=== PATIENT | female | born 1965 | race Caucasian/White ===

== ENCOUNTER 2021-11-10 23:17 | Inpatient (IN) | payer OTHER ==
[~2021-11-10] VITALS: Ht 167.6 cm; Wt 83.8 kg
[2021-11-10 23:50] LABS: BASOPHILS ABSOLUTE AUTO 0.04 K/mm3 (0.00-0.23); BASOPHILS PERCENT AUTO 1 % (0-2); EOSINOPHILS ABSOLUTE AUTO 0.03 K/mm3 (0.00-0.68); EOSINOPHILS PERCENT AUTO 1 % (0-6); Hematocrit 40.9 % (33.0-51.0); Hemoglobin 13.3 g/dL (11.5-16.0); IMMATURE GRAN ABSOLUTE AUTO 0.01 K/mm3 (0.00-0.10); IMMATURE GRAN PERCENT AUTO 0 % (0-1); LYMPHOCYTES ABSOLUTE AUTO 1.67 K/mm3 (0.84-5.20); LYMPHOCYTES PERCENT AUTO 27 % (21-46); MONOCYTES ABSOLUTE AUTO 0.36 K/mm3 (0.16-1.47); MONOCYTES PERCENT AUTO 6 % (4-13); Mean Corpuscular HGB 26.9 pg (26.0-34.0); Mean Corpuscular HGB Conc 32.5 g/dL (31.5-36.5); Mean Corpuscular Volume 83 fL (80-100); NEUTROPHILS PERCENT AUTO 66 % (41-73); Platelet Count 302 K/mm3 (150-400); Red Blood Cell Count 4.94 M/mm3 (3.80-5.20); White Blood Cell Count 6.21 K/mm3 (4.00-11.30)
[2021-11-10 23:54] LABS: Source, Urine Clean Catch
[2021-11-11 00:01] LABS: Bilirubin, Urine Neg (Neg); Blood, Urine Neg (Neg); Glucose Qualitative, Urine Neg (Neg); Ketones, Urine Neg (Neg); Leukocyte Esterase, Urine 1+ (Neg); Nitrite, Urine Neg (Neg); Protein, Urine Neg (Neg); Urobilinogen, Urine NORM (Normal)
[2021-11-11 00:08] LABS: Alanine Aminotransfer (ALT/SGP 31 U/L (12-78); Albumin, Blood 3.6 g/dL (3.4-5.0); Albumin/Globulin Ratio 1.1 (0.8-1.8); Alk Phos 80 U/L (50-136); Anion Gap 5 mmol/L (6-16); Aspartate Aminotrans (AST/SGOT 12 U/L (12-37); Bilirubin, Total 0.4 mg/dL (0.1-1.0); Blood Urea Nitrogen 11 mg/dL (8-24); Bun/Creatinine Ratio 16.1 (12.0-20.0); CO2, Blood 27 mmol/L (21-32); Calcium, Blood 9.2 mg/dL (8.5-10.1); Chloride, Blood 110 mmol/L (98-108); Creatinine, Blood 0.69 mg/dL (0.40-1.00); Globulin, Blood 3.3 g/dL (2.2-4.0); Glomerular Filtration Rate >60 (60-); Glucose, Blood 157 mg/dL (70-99); Potassium, Blood 3.5 mmol/L (3.5-5.5); Sodium, Blood 142 mmol/L (136-145); Total Protein, Blood 6.9 g/dL (6.4-8.2)
[2021-11-11 00:34] LABS: Appearance, Urine Clear (Clear); Color, Urine Yellow (P-Yellow)
[2021-11-11 00:45] LABS: Bacteria Few /hpf; Red Blood Cells, Urine 0-2 /hpf (0-2); Squamous Epithelial Cells Rare /hpf (Few)
[2021-11-11] MEDS ORDERED: OMEPRAZOLE DR 20 MG (01:16)
[2021-11-11] MEDS ORDERED: PROG100 PO (01:18)
--- NOTE | 2021-11-11 05:40 | NUR ---
SHIFT SUMMARY PT ARRIVED TO UNIT FROM ED. HR BRADYCARDIC, SEE EHR. BP STABLE. OXYGEN SATURATION MAINTAINED ABOVE 95% ON RA. PT ALERT AND ORIENTED X 4. PT SBA D/T WEAKNESS. CARDIOLOGY CONUSLT PLACED. PT ABLE TO TURN SELF IN BED NEEDED. CALL LIGHT WITHIN REACH. NO CP OR PRESSURE REPORTED. WILL CONT TO MONITOR UNTIL REPORT GIVEN TO DAYSHIFT RN.
--- NOTE | 2021-11-11 09:11 | NUR ---
ASSUMPTION OF CARE: ASSUMED CARE FOR PATIENT AT 0700 ON 11/11/21. PATIENT SLEEPING ON ASSUMPTION, PATIENT ALERT AND ORIENTED. BRADYCARDIA NO CHEST PAIN, ADMITTED WITH SYNCOPAL EPISODE ON BEDREST. PATIENT RECIEVED AN ECHO, AND CONSULTED URGENTLY BY DR. GAMEZ SUPERINTENDENT [employer] [place], RECOMMENDATIONS FROM PROVIDER WERE TO PLACE TEMP PACEMAKER, PATIENT AGREED. COMMISSIONS SPECIALIST DID EKG, [facility], AND REPORT GIVEN TO MANAGER [facility] FOR [facility]. PATIENT AWARE OF THE PLAN AND UNDERSTANDS WITH NO QUESTIONS COMMENTS OR CONCERNS AT THIS TIME.
[2021-11-11 09:19] LABS: Digoxin (Lanoxin) 0.11 ug/mL (0.80-2.00)
--- NOTE | 2021-11-11 09:49 | NUR ---
[facility] bed. She is alert and oriented and is able to communicate her needs. She is able to [position self in bed for comfort. She has temporary pacer in RIJ, valve is closed and syringe attached. She states can use bedpan without assist. Water and call light at bedside. HR 45-55 and occassionally paced.
--- NOTE | 2021-11-11 11:37 | NUR ---
Pt. is alert and in bed, and welcomes my visit. Spouse is present. Pt. is unsettled about news that her diet may have been a trigger for her hospitalization. Listen empathetically and seek to normalize the pt. experience. Continue to establish rapport. Pt. displays evidenc of bothe engagement and encouragement. Pt. and spouse are people of [place]. Prayed with Pt. and spouse. Both Pt. and spouse verbalize their gratitude for the spiritual care visit.
--- NOTE | 2021-11-11 11:50 | NUR ---
Patient manages bed miller by herself. HR 45-55 and occassionally paced. No changes to temp pacer in RIJ , dressing intact and site WNL's. She continues to self positions for comfort. Had dietary come by and addressed her special dietary needs. She remains alert and oriented and able to communicate her needs.
--- NOTE | 2021-11-11 13:30 | NUR ---
Patient has been resting and has managed bedpan by herself. Dr Solano by and saw her and her . She remains alert and oriented . HR 45-60 with occassional pace when drops and patient states she feels it. in and out getting supplies.
[2021-11-11 15:25] LABS: Source, Urine Foley catheter
[2021-11-11 15:37] LABS: Bilirubin, Urine Neg (Neg); Blood, Urine 3+ (Neg); Glucose Qualitative, Urine Neg (Neg); Ketones, Urine Neg (Neg); Leukocyte Esterase, Urine 1+ (Neg); Nitrite, Urine Neg (Neg); Protein, Urine 4+ (Neg); Urobilinogen, Urine NORM (Normal); pH, Urine 6.5 (5.0-8.0)
[2021-11-11 15:38] LABS: Appearance, Urine Hazy (Clear); Color, Urine Pale Yellow (P-Yellow)
[2021-11-11 15:39] LABS: Bacteria Few /hpf; Mucus Light (0-Heavy); Squamous Epithelial Cells Few /hpf (Few)
[2021-11-11 15:44] LABS: U Amphetamine Screen Not Detected; U Barbituate Screen Not Detected; U Benzodiazapine Screen Not Detected; U Buprenorphine Screen Not Detected; U Cannabinoids Screen Not Detected; U Cocaine Screen Not Detected; U Methadone Screen Not Detected; U Methamphetamine Screen Not Detected; U Opiates Screen Not Detected; U Oxycodone Screen Not Detected; U Phencyclidine Screen Not Detected; U Propoxyphene Screen Not Detected
--- NOTE | 2021-11-11 16:02 | NUR ---
Patient had de guzman placed and she is not allowed out of bed r/t temp pacer. HR remains 45-[address] Solano wrote orders for covid test and sent UA and tox screen for de guzman.
[2021-11-11 16:48] LABS: Influenza A, PCR NEGATIVE (NEGATIVE); Influenza B, PCR NEGATIVE (NEGATIVE); Resp Syncytial Virus, PCR NEGATIVE (NEGATIVE); SARS-Cov-2 (COVID-19) PCR, MMC NEGATIVE (NEGATIVE)
--- NOTE | 2021-11-11 17:30 | NUR ---
Patient HR has been 44-55 and has been paced more frequently. She remains aleret and oriented She has been dring water with lemon in it. She is getting frustrated laying in bed. at bedside.Melendrez out put 900 ml.
--- NOTE | 2021-11-11 19:15 | NUR ---
ASSUMED PT CARE. BEDSIDE PT REPORT RECIEVED FROM OFF GOING RN. VSS, TEMP PACEMAKER SETTINGS VERIFIED. PT AAOX4 AND DENIES COMPLAINT.
[2021-11-12 04:21] LABS: BASOPHILS ABSOLUTE AUTO 0.06 K/mm3 (0.00-0.23); BASOPHILS PERCENT AUTO 1 % (0-2); EOSINOPHILS ABSOLUTE AUTO 0.15 K/mm3 (0.00-0.68); EOSINOPHILS PERCENT AUTO 3 % (0-6); Hematocrit 39.2 % (33.0-51.0); Hemoglobin 12.9 g/dL (11.5-16.0); IMMATURE GRAN ABSOLUTE AUTO 0.01 K/mm3 (0.00-0.10); IMMATURE GRAN PERCENT AUTO 0 % (0-1); LYMPHOCYTES ABSOLUTE AUTO 2.35 K/mm3 (0.84-5.20); LYMPHOCYTES PERCENT AUTO 43 % (21-46); MONOCYTES ABSOLUTE AUTO 0.36 K/mm3 (0.16-1.47); MONOCYTES PERCENT AUTO 7 % (4-13); Mean Corpuscular HGB 27.1 pg (26.0-34.0); Mean Corpuscular HGB Conc 32.9 g/dL (31.5-36.5); Mean Corpuscular Volume 82 fL (80-100); Mean Platelet Volume 9.8 fL (9.1-12.4); NEUTROPHILS PERCENT AUTO 47 % (41-73); Platelet Count 262 K/mm3 (150-400); RDW Coefficient Variation 13.9 % (11.7-14.2); RDW Standard Deviation 41.3 fL (35.1-46.3); Red Blood Cell Count 4.76 M/mm3 (3.80-5.20); White Blood Cell Count 5.53 K/mm3 (4.00-11.30)
[2021-11-12 04:59] LABS: Anion Gap 5 mmol/L (6-16); Blood Urea Nitrogen 7 mg/dL (8-24); Bun/Creatinine Ratio 9.6 (12.0-20.0); CO2, Blood 27 mmol/L (21-32); Calcium, Blood 8.4 mg/dL (8.5-10.1); Chloride, Blood 110 mmol/L (98-108); Creatinine, Blood 0.73 mg/dL (0.40-1.00); Digoxin (Lanoxin) 0.06 ug/mL (0.80-2.00); Glomerular Filtration Rate >60 (60-); Glucose, Blood 93 mg/dL (70-99); Magnesium, Blood 1.9 mg/dL (1.6-2.4); Potassium, Blood 3.6 mmol/L (3.5-5.5); Sodium, Blood 142 mmol/L (136-145)
--- NOTE | 2021-11-12 05:53 | NUR ---
SHIFT SUMMARY. PT STATUS REMIANS ESSENTIALLY UNCHANGED. PT COMPLAINS OF OCCASIONAL HEADACHE WHICH HAS BEEN RELIEVED BY PRN MEDICATION. PT CONTINUES TO DENY SOB, CHEST PAIN OR DIZZINESS. TEMP. PACER CONTUNUES TO PACE INTERMITTANTLY WITH GOOD CAPTURE, SETTINGS UNCHANGED.
--- NOTE | 2021-11-12 07:40 | NUR ---
Received reort from Noc RN. Patient awake in bed and able to communicate her needs. She had just finished having formed BM. She is on RA and sats 97%. She has temp pacer in RIJ, Dressing intact and site WNL's and HR in the 45-55 and occassionally paced. IV RFA flushed and SL. Remains on special diet needs.
--- NOTE | 2021-11-12 10:12 | NUR ---
Dr Solano has been by and awaiting new orders. Patient tolerated am meds and medicated for headache as per OCT. She tolerated breakfast without difficulty. Renewed water and ice. Melendrez remains patent and clear yellow urine output. HR 50-60.
--- NOTE | 2021-11-12 11:30 | NUR ---
Patient has been resting off and on. She denies any current headache since medicated. Temp pacer site WNL's. She received full bed bath and linen change. Patient remains pleasant and cooperative.
--- NOTE | 2021-11-12 13:48 | NUR ---
Patient called and started feeling really bad and weak when looked at EKG was having long period of pacing and now resolved. Pacer site WNL's and intact .
--- NOTE | 2021-11-12 15:30 | NUR ---
Medicated patient for pain and has not had as many episodes of pacing and feeling bad. at bedside. RIJ dressing intact and WNL's no changes since insertion. HR 45-58.
--- NOTE | 2021-11-12 17:59 | NUR ---
Patient has been doing well. When relaxed very little pacing. remains at bedside. [facility] pacer site WNL's and box on lap. Melendrez patent and had 2L out clear yellow urine and she took in 1800 ml's. Toradol and tylenol for pain (headache). She remains on bedrest, possible pacer on Wednesday if not improved.
--- NOTE | 2021-11-12 19:33 | NUR ---
PT REPORT RECIEVED. ASSUMED PT CARE. Pt AA&OX4, ON BEDREST WITH TEMP PACER IN PLACE WITH RATE SET @45 BPM, OUT PUT AT 2mA AND SENSITIVITY OF 2. PT DENIES COMPLAINT.
[2021-11-13 03:48] LABS: Anion Gap 6 mmol/L (6-16); Blood Urea Nitrogen 10 mg/dL (8-24); Bun/Creatinine Ratio 13.1 (12.0-20.0); CO2, Blood 25 mmol/L (21-32); Calcium, Blood 8.9 mg/dL (8.5-10.1); Chloride, Blood 110 mmol/L (98-108); Creatinine, Blood 0.76 mg/dL (0.40-1.00); Glomerular Filtration Rate >60 (60-); Glucose, Blood 98 mg/dL (70-99); Magnesium, Blood 2.2 mg/dL (1.6-2.4); Potassium, Blood 3.8 mmol/L (3.5-5.5); Sodium, Blood 141 mmol/L (136-145)
--- NOTE | 2021-11-13 05:50 | NUR ---
SHIFT SUMMERY: PT REMAINS AA&OX4 AND ON BEDREST. PT CONTUNES TO COMPLAIN OF INTERMITTANT HEADACHE WICH HAS BEEN CONTROLLED WITH PRN TYLENOL AND TORADOL. TMEP PACER REMAINS INTACT AND IN PLACE WITH GOOD CAPTURE AT CURRENT SETTINGS. RATE, 45, OUTPUT 2 mA. SENSITIVITY 2. BP AND SpO2 STABLE.
[2021-11-13 08:25] LABS: Digoxin (Lanoxin) 0.07 ug/mL (0.80-2.00)
--- NOTE | 2021-11-13 09:00 | NUR ---
Assumed Care. AOx4, cooperative. at bedside. Dr. Turner in this am to see the patient around 0715 and decreased the transducer rate to 40. Pt reports sensitivity to the pacer spikes which resolved with decreased rate. Per Dr. Turner she plans on monitoring for another day to see if she needs an internal pacemaker. Decision will be assessed tomorrow. Sinus Moises on the monitor as low as 45. Tolerating well. Denies dizziness or lightheadness. 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 Cath is patent and draining. No other complaints or concerns are noted. Bed in low position and call light is in reach.
--- NOTE | 2021-11-13 10:00 | NUR ---
Catheter leaking, small amount. Repositioned in the bladder. Still patent and draining but will montior for changes.
--- NOTE | 2021-11-13 11:41 | NUR ---
Family in to visit. Gave first dose of lisinopril, lunch given.
--- NOTE | 2021-11-13 13:00 | NUR ---
Pt sleeping, went home for a while. Will be back this evening.
--- NOTE | 2021-11-13 18:32 | NUR ---
Shift Summary: AOx3, cooperative. has been at bedside majority of the day. [place] off/on from when she fell back, CT on admit was normal. Tordol and Tylenol have been given. LS clear t/o, resp even and unlabored. Sats high 90's on RA. Sinus Moises on monitor. She has temporary pacemaker to the left neck IJ. Dr. Turner decreased rate to 40, 2 output, with 2 for setting on sensitivity. She has had very few pacer spikes today. Rate on average was up in 50-60. She denied any pain or discomfort with the temporary pacemaker. Dressing has remained intake. Good appetite. No BM today. Catheter has leaked off and on but she reports she has a cystocele. Leakage has been minimal. States it only occurs when she coughs. Skin is PWD. She has had antibotic per orders in prep for possible pacemaker surgery tomorrow, which depends on how she does tonight. Will report to oncoming nurse.
[2021-11-14 04:04] LABS: Anion Gap 6 mmol/L (6-16); Blood Urea Nitrogen 11 mg/dL (8-24); Bun/Creatinine Ratio 16.5 (12.0-20.0); CO2, Blood 25 mmol/L (21-32); Calcium, Blood 8.9 mg/dL (8.5-10.1); Chloride, Blood 110 mmol/L (98-108); Creatinine, Blood 0.67 mg/dL (0.40-1.00); Glomerular Filtration Rate >60 (60-); Glucose, Blood 96 mg/dL (70-99); Magnesium, Blood 1.9 mg/dL (1.6-2.4); Sodium, Blood 141 mmol/L (136-145)
[2021-11-14 05:41] LABS: Digoxin (Lanoxin) 0.07 ug/mL (0.80-2.00)
--- NOTE | 2021-11-14 06:48 | NUR ---
SHIFT SUMMERY: PT REMAINS AA7OX4 OVER NIGHT. SHE STATED A HEADACHE SURING THE NIGHT WHICH WAS RELEIVED BY IV TORADOL. TEMP PACER REMAINS INTACT AND IN PLACE WITH GOOD CAPTURE AT CURRENT SETTINGS: RATE-40, OP-2 mA, SENSITIVITY-2. PT'S HR WAS MOSTLY IN THE LOW TO MID 40'S WHILE ASLEEP, WITH ONLY VERY OCCASIONAL PACER SPIKES.. WHILE AWAKE, PT'S HR HAS TYPICLY INCREASED TO THE MID 50'S. PT DENIES CP, SOB AND DIZZINESS.
[2021-11-14 08:11] LABS: LYME IGG/IGM AB <0.91 ISR (0.00-0.90)
--- NOTE | 2021-11-14 10:46 | NUR ---
Pt. is awake and in bed. Pt. welcomes my visit. Spouse is present. Pt. is a little unsettled awaiting results that might confirm she needs a pacemaker. Listen empathetically. Another visitor came and visited Pt. Pt. displayed evidence of strong relational connections and support from both work and [employer] community. Pastorally prayed for pt. and her family. Pt. displayed evidence of peace and verbalized gratitude for the medical care she has received as well as the spiritual care she has received.
--- NOTE | 2021-11-14 12:21 | NUR ---
REASSEMENT PT RESTING IN BED REPORTING IMPROVEMENT TO HEADACHE AFTER TORODOL. PT MOSTLY REMAINS IN SINUS NICOL MID 40'S TO 50'S. TRANSVENOUS PACER IN PLACE WITH BACK UP RATE OF 40. PT HAS ONLY HAD A FEW EPISODES OF PACING WITH <5 BEATS THIS SHIFT. PT REMAINS NPO AT THIS TIME AWAITING CARDIOLOGY FOLLOWUP FOR POSSIBLE PERMANMENT PACER. VITALS HAVE REMAINED STABLE.
--- NOTE | 2021-11-14 15:41 | NUR ---
REASSESSMENT TEMPORY PACE MAKER HAS BEEN OFF SINCE [address] CHRISTENSEN. NO LONG PAUSES HAVE BEEN NOTED. PT REMAINS IN SINUS NICOL WITH RATES HIGH 40'S-MID 50'S. VITALS HAVE REMAINED STABLE. PT CONTINUES TO HAVE SLIGHT HEADACHE, CURRENTLY CONTROLLED WITH PRN MEDICATIONS. PT TO REMAIN NPO UNTIL DR CHRISTENSEN RE-EVAL'S PT FOR PACEMAKER NEED.
--- NOTE | 2021-11-14 18:07 | NUR ---
SHIFT SUMMARY PT IS ALERT AND ORIENTEDx4. TEMPORARY PACEMAKER TURNED OFF THIS AFTERNOON AND PT HAS HAD NO PAUSES. PT REMAINS IN A SINUS NICOL RHYTHM WITH RATES MID 40'S-50'S. VITALS HAVE REMAINED STABLE. PT'S HEADACHE HAS IMPROVED THROUGH OUT THE DAY. SEE EMAR FOR PRN MEDICATIONS. PT ABLE TO REPOSITION INDEPENDANTLY IN BED. DR CHRISTENSEN WANTS TO MONITOR PT OVER NIGHT FOR ANY SYMPTOMATIC BRADYCARDIA OR CARDIAC PAUSES. TEMPORARY PACER TO BE LEFT CONNECTED TO PT, BUT OFF. PT WAS ABLE TO TOLERATED DINNER AFTER NPO RESTRICTION LIFTED.
--- NOTE | 2021-11-14 22:18 | NUR ---
ASSUMED CARE RECEIVED REPORT FROM ZACH AT 1900. PT IS A/O X4, REPOSITIONS SELF INDEPENDENTLY AND COMMUNICATES NEEDS APPROPRIATELY. TRANSVENOUS PACER IN PLACE BUT HAS BEEN OFF SINCE 1315 TODAY. SINCE SHE HAS REMAINED IN SINUS NICOL WITH RATE IN 40-50'S AND 2 PAUSES NOTED AT 2019 AND 2213. ALL OTHER VITAL SIGNS ARE STABLE. SHE REPORTS A MILD HEADACHE, BUT DOES NOT WANT ANYTHING FOR IT YET. [place] REMAINS IN PLACE AND PATENT, DRAINING CLEAR YELLOW URINE TO GRAVITY. 20G TO RIGHT AC, SALINE LOCKED. ORDERS REVIEWED, WILL TREAT PRESCRIBED.
[2021-11-15 04:13] LABS: Anion Gap 7 mmol/L (6-16); Blood Urea Nitrogen 11 mg/dL (8-24); Bun/Creatinine Ratio 16.5 (12.0-20.0); CO2, Blood 24 mmol/L (21-32); Calcium, Blood 8.9 mg/dL (8.5-10.1); Chloride, Blood 108 mmol/L (98-108); Creatinine, Blood 0.67 mg/dL (0.40-1.00); Glomerular Filtration Rate >60 (60-); Glucose, Blood 87 mg/dL (70-99); Potassium, Blood 3.8 mmol/L (3.5-5.5); Sodium, Blood 139 mmol/L (136-145)
--- NOTE | 2021-11-15 05:49 | NUR ---
PT REMAINS A/0 X4 THROUGHOUT SHIFT. SHE REPORTS SHE FEELS RESTED AND WAS ABLE TO SLEEP SOME LAST NIGHT. VITAL SIGNS REMAINED STABLE THROUGHOUT THE NIGHT, HR REMAINED SINUS NICOL, RATE IN 40-50'S WITH ONLY TWO, <2 SECOND PAUSES AT THE BEGINNING OF THE SHIFT. OTHERWISE, NO ACUTE EVENTS. PACEMAKER REMAINS IN PLACE, BUT IS STILL OFF. ALL AM LABS WERE WITHIN NORMAL RANGE. MEDICATED X1 WITH PRN TORADOL FOR HEADACHE AND SHE REPORTS THIS AM SHE REMAINS HEADACHE FREE. WILL REPORT TO ONCOMING SHIFT WHEN AVAILABLE.
--- NOTE | 2021-11-15 07:43 | NUR ---
TOOK OVER CARE OF PT AT 0700. PT RESTING ON ROOM AIR, SINUS NICOL CARDIA ON TELEMETRY, OTHERWISE NEGATIVE ASSESSMENT AT THIS TIME.
--- NOTE | 2021-11-15 09:48 | NUR ---
DR. CHRISTENSEN PULLED TEMPORARY PACER WIRES, OCCLUSIVE DRESSING IN PLACE, NO SIGNS OF BLEEDING
[2021-11-15 10:17] LABS: Source, Urine Foley catheter
[2021-11-15 10:29] LABS: Appearance, Urine Clear (Clear); Bilirubin, Urine Neg (Neg); Blood, Urine 1+ (Neg); Glucose Qualitative, Urine Neg (Neg); Ketones, Urine 1+ (Neg); Leukocyte Esterase, Urine 3+ (Neg); Nitrite, Urine Pos (Neg); Protein, Urine Neg (Neg); Urobilinogen, Urine NORM (Normal)
--- NOTE | 2021-11-15 10:40 | NUR ---
URINE CULTURE SENT FROM [place], [place] REMOVED, PT THEN WALKED WITH NO DECREASE IN HR NOTED, PT THEN VOIDED ONCE BACK IN ROOM WITH NO PAIN ON URINATION.
[2021-11-15 10:45] LABS: Color, Urine Pale Yellow (P-Yellow)
[2021-11-15 10:46] LABS: Red Blood Cells, Urine 0-2 /hpf (0-2)
[2021-11-15 10:47] LABS: Bacteria Many /hpf; Squamous Epithelial Cells Not Seen /hpf (Few)
[2021-11-15] MEDS ORDERED: Prinivil10 MG PO (11:40)
== END 2021-11-15 12:32 | disposition home or self-care (01) | DRG 262 ==
LOC: ER 23:17 → PCU 23:18 → ICUE 11-11 08:45
PROVIDERS: Emergency Medicine; Internal Medicine; Internal Medicine Cardiovascular Disease; ADMIT Family Medicine
PROC: 5A1223Z Performance of Cardiac Pacing, Continuous (ICD-10-PCS; principal; 2021-11-11)
PROC: 02HK3JZ Insertion of Pacemaker Lead into Right Ventricle, Percutaneous Approach (ICD-10-PCS; 2021-11-11)
DX: I49.5 Sick sinus syndrome (principal); I45.5 Other specified heart block; Z20.822 Contact with and (suspected) exposure to COVID-19; Z28.21 Immunization not carried out because of patient refusal; E87.6 Hypokalemia; E83.42 Hypomagnesemia; I10 Essential (primary) hypertension; E11.9 Type 2 diabetes mellitus without complications; G47.00 Insomnia, unspecified; G47.33 Obstructive sleep apnea (adult) (pediatric); K21.9 Gastro-esophageal reflux disease without esophagitis; F43.10 Post-traumatic stress disorder, unspecified; T46.2X5A Adverse effect of other antidysrhythmic drugs, initial encounter; F41.9 Anxiety disorder, unspecified; E66.9 Obesity, unspecified; Z68.29 Body mass index [BMI] 29.0-29.9, adult; Z87.19 Personal history of other diseases of the digestive system; Z90.49 Acquired absence of other specified parts of digestive tract; Z90.89 Acquired absence of other organs; Z90.710 Acquired absence of both cervix and uterus; Z98.890 Other specified postprocedural states; Z99.89 Dependence on other enabling machines and devices; Z88.0 Allergy status to penicillin; Z88.6 Allergy status to analgesic agent; Z91.040 Latex allergy status; Z91.048 Other nonmedicinal substance allergy status; Z79.899 Other long term (current) drug therapy
CPT/HCPCS: 0241U; 33210; 36415; 51702; 70450; 76937; 80048; 80053; 80162; 81001; 82947; 83735; 84146; 84443; 84484; 85025; 86618; 87077; 87086; 87186; 93005; 93010; 93306; 99285-25; A9270; C1769; C1894; G0378; J1644; J1650; J1885; J3475; J7040; J7050

== ENCOUNTER 2021-12-11 06:11 | Day surgery (SDC) | payer OTHER ==
[~2021-12-11] VITALS: Ht 167.6 cm; Wt 83.0 kg
[~2021-12-11 06:11] MED LIST: OMEPRAZOLE DR 20 MG; PROG100 PO; Prinivil10 MG PO
--- NOTE | 2021-12-11 09:06 | NUR ---
PT ARRIVED BACK TO RECOVERY ROOM IN RECLINER. RACW PACEMAKER SITE SOFT NON-TENDER WITH NO HEMATOMA, NO BLEEDING AND INTACT DRESSING WITH ICE BAG OVER SITE AND RIGHT ARM SLING IN PLACE. PT DENIES CHEST PAIN. CALL LIGHT IN REACH.
--- NOTE | 2021-12-11 09:24 | NUR ---
PT'S IN ROOM. PT EATING BREAKFAST.
--- NOTE | 2021-12-11 12:23 | NUR ---
DR BALDWIN IN ROOM TO SEE PT. NO CHANGES TO RACW SITE.
--- NOTE | 2021-12-11 12:36 | NUR ---
20 G IV DISCONTINUED FROM RIGHT AC WITH INTACT CANNULA. PT ESCORTED OUT VIA WHEELCHAIR ESCORT.
== END 2021-12-11 12:40 | disposition home or self-care (01) ==
LOC: MHTC 06:11
DX: I49.5 Sick sinus syndrome (principal); I10 Essential (primary) hypertension; E11.9 Type 2 diabetes mellitus without complications; G47.33 Obstructive sleep apnea (adult) (pediatric); Z79.899 Other long term (current) drug therapy; Z88.0 Allergy status to penicillin; Z88.5 Allergy status to narcotic agent
CPT/HCPCS: 33208; 71046; 99152; 99153; C1785; C1894; C1898; J1200; J1580; J1644; J2250; J3010; J3370; J7030; J7040

== ENCOUNTER → 2023-01-08 | Outpatient (CLI) | payer OTHER ==
[~2023-01-08] MED LIST changes: +BUSPIRONE HCL10 M6 PO; +HIPREX1 G1 PO; +KLOR-CON 1010 ME9 PO; +PANTOPRAZOLE SO40 M2 PO; +ROSUVASTATIN CAL5 MG PO
[2023-01-08 11:27] LABS: Source, Urine Voided
[2023-01-08 12:33] LABS: Appearance, Urine Clear (Clear); Bilirubin, Urine Neg (Neg); Blood, Urine Neg (Neg); Color, Urine Yellow (P-Yellow); Glucose Qualitative, Urine Neg (Neg); Ketones, Urine Neg (Neg); Leukocyte Esterase, Urine Neg (Neg); Nitrite, Urine Neg (Neg); Protein, Urine Neg (Neg); Urobilinogen, Urine NORM (Normal)
== END | disposition home or self-care (01) ==
LOC: LAB 11:26 → LAB SHORT 11:26 → LAB FUT 01-09 09:20
PROVIDERS: Physician Assistant
DX: N39.0 Urinary tract infection, site not specified (principal)
CPT/HCPCS: 81003; 87077; 87086; 87186

== ENCOUNTER 2023-10-13 10:51 | Day surgery (SDC) | payer OTHER ==
[~2023-10-13] VITALS: Ht 167.6 cm; Wt 82.5 kg
[~2023-10-13 10:51] MED LIST changes: +Amitriptyline H10 MG PO; +Atropine Sulfate 0.1 MG/ML 10ML SYR ONE; +BUME1 PO; -BUSPIRONE HCL10 M6 PO; +Buspirone HCl15 MG PO; +Glycopyrrolate 0.2 MG/ML 1MLVIAL ONE; +K-TAB ER20 ME1 PO; -KLOR-CON 1010 ME9 PO; +LISI5 PO; +Lactated Ringer's 1,000 ML IV ONE; +Lidocaine 2% 5 ML SDV ONE; +Lidocaine HCl/Pf 1% 5 ML VIAL ONE; +Methylene Blue 1% 100 MG/10 ML VIAL ONE; +Ondansetron HCl 2 MG / ML 2ML Vial ONE; +PANT20 PO; -PANTOPRAZOLE SO40 M2 PO; -Prinivil10 MG PO; +ROSU10TA PO; -ROSUVASTATIN CAL5 MG PO; +ePHEDrine Sulfate 50 MG/ML 1ML Injection ONE; +propofoL 50 ML IV ONE
[2023-10-13] MEDS ORDERED: Lactated Ringer's 1,000 ML IV ONE (12:13)
[2023-10-13 13:13] VITALS: BP 122/78
== END 2023-10-13 13:15 | disposition home or self-care (01) ==
LOC: ORSCSDS 10:51
PROVIDERS: Internal Medicine Gastroenterology
PROC: 0DB98ZX Excision of Duodenum, Via Natural or Artificial Opening Endoscopic, Diagnostic (ICD-10-PCS; principal; 2023-10-13 12:00)
PROC: 0DB68ZX Excision of Stomach, Via Natural or Artificial Opening Endoscopic, Diagnostic (ICD-10-PCS; principal; 2023-10-13 12:00)
DX: D50.9 Iron deficiency anemia, unspecified (principal); R13.10 Dysphagia, unspecified; K21.9 Gastro-esophageal reflux disease without esophagitis; K44.9 Diaphragmatic hernia without obstruction or gangrene; I10 Essential (primary) hypertension; E78.5 Hyperlipidemia, unspecified; G47.33 Obstructive sleep apnea (adult) (pediatric); F41.1 Generalized anxiety disorder; Z95.0 Presence of cardiac pacemaker; E78.2 Mixed hyperlipidemia; E11.9 Type 2 diabetes mellitus without complications; Z86.73 Personal history of transient ischemic attack (TIA), and cerebral infarction without residual deficits; Z79.899 Other long term (current) drug therapy
CPT/HCPCS: 82947; 88305; 88342; J0461; J2001; J2405; J2704; J7120; Q9968

== ENCOUNTER 2024-05-02 09:19 | Day surgery (SDC) | payer OTHER ==
[~2024-05-02] VITALS: Ht 167.6 cm; Wt 83.4 kg
[~2024-05-02 09:19] MED LIST changes: -Atropine Sulfate 0.1 MG/ML 10ML SYR ONE; -Glycopyrrolate 0.2 MG/ML 1MLVIAL ONE; -Lidocaine 2% 5 ML SDV ONE; -Lidocaine HCl/Pf 1% 5 ML VIAL ONE; -Methylene Blue 1% 100 MG/10 ML VIAL ONE; -Ondansetron HCl 2 MG / ML 2ML Vial ONE; +Robaxin750 MG PO; -ePHEDrine Sulfate 50 MG/ML 1ML Injection ONE
[2024-05-02] MEDS ORDERED: AMIT25 (09:34)
[2024-05-02] MEDS ORDERED: ASPI81CH (09:34)
[2024-05-02] MEDS ORDERED: Vitamin C100 M1 (09:35)
[2024-05-02] MEDS ORDERED: [UNRECOGNIZED DRUG - OTHER] (09:35)
[2024-05-02] MEDS ORDERED: ENFAMIL DHA-ARA59 ML (09:36)
[2024-05-02] MEDS ORDERED: CITRACAL-D3 ER1 EAC1 (09:36)
[2024-05-02] MEDS ORDERED: PROBIOTIC1 EA14 (09:36)
[2024-05-02] MEDS ORDERED: MULVITA (09:36)
[2024-05-02] MEDS ORDERED: DHEA (09:37)
[2024-05-02] MEDS ORDERED: Lactated Ringer's 1,000 ML IV ONE (09:49)
[2024-05-02] MEDS ORDERED: propofoL 50 ML IV ONE (10:49)
[2024-05-02 11:13] VITALS: BP 132/89
--- NOTE | 2024-05-02 11:53 | NUR ---
05/02/24 1153 Jamila Pérez LATE ENTRY: 5ML NS INJECTED FOR POLYPECTOMY.
== END 2024-05-02 11:20 | disposition home or self-care (01) ==
LOC: ORSCSDS 09:19
PROVIDERS: Internal Medicine Gastroenterology
PROC: 0DBN8ZX Excision of Sigmoid Colon, Via Natural or Artificial Opening Endoscopic, Diagnostic (ICD-10-PCS; principal; 2024-05-02 10:15)
PROC: 0DBK8ZX Excision of Ascending Colon, Via Natural or Artificial Opening Endoscopic, Diagnostic (ICD-10-PCS; principal; 2024-05-02 10:15)
PROC: 0DBH8ZX Excision of Cecum, Via Natural or Artificial Opening Endoscopic, Diagnostic (ICD-10-PCS; principal; 2024-05-02 10:15)
DX: D50.9 Iron deficiency anemia, unspecified (principal); Z86.010 Personal history of colon polyps; R04.0 Epistaxis; D12.2 Benign neoplasm of ascending colon; D12.5 Benign neoplasm of sigmoid colon; K63.5 Polyp of colon; K57.30 Diverticulosis of large intestine without perforation or abscess without bleeding; K64.4 Residual hemorrhoidal skin tags; K21.9 Gastro-esophageal reflux disease without esophagitis; Z86.73 Personal history of transient ischemic attack (TIA), and cerebral infarction without residual deficits; Z79.82 Long term (current) use of aspirin; G47.33 Obstructive sleep apnea (adult) (pediatric); E78.5 Hyperlipidemia, unspecified; I10 Essential (primary) hypertension; E11.9 Type 2 diabetes mellitus without complications; Z95.0 Presence of cardiac pacemaker; Z79.899 Other long term (current) drug therapy
CPT/HCPCS: 82947; 88305; J2704; J7120